=== PATIENT | male | born 1940 ===

== ENCOUNTER 2021-04-30 07:00 | Outpatient (CLI) | payer OTHER | END 2021-04-30 07:20 | disposition home or self-care (01) | LOC: PPH VACUNA 07:00 | PROVIDERS: ATTEND Emergency Medicine Pediatric Emergency Medicine | DX: Z23 Encounter for immunization (principal) ==

== ENCOUNTER 2021-11-01 13:41 | Emergency (ER) | payer OTHER ==
[~2021-11-01] VITALS: Ht 175.3 cm; Wt 83.9 kg
[2021-11-01] MEDS ORDERED: ATORVASTATIN CA40 MG PO (14:05)
[2021-11-01] MEDS ORDERED: LOSARTAN POTASS50 MG PO (14:05)
[2021-11-01] MEDS ORDERED: METFORMIN HCL500 M4 PO (14:05)
[2021-11-01] MEDS ORDERED: DULOXETINE HCL60 MG PO (14:06)
[2021-11-01] MEDS ORDERED: NIFEDIPINE ER30 M1 PO (14:06)
[2021-11-01] MEDS ORDERED: ISOSORBIDE MONO30 M2 PO (14:07)
[2021-11-01] MEDS ORDERED: SPIRONOLACTONE25 MG PO (14:07)
[2021-11-01] MEDS ORDERED: BUPROPION XL300 MG PO (14:08)
[2021-11-01] MEDS ORDERED: ST. JOSEPH ASPI81 M2 PO (14:08)
[2021-11-01] MEDS ORDERED: CARVEDILOL25 M1 PO (14:08)
[2021-11-01] MEDS ORDERED: OMEGA-3 ACID ETH1 GM PO (14:08)
[2021-11-01] MEDS ORDERED: FAMOTIDINE20 MG PO (14:08)
[2021-11-01] MEDS ORDERED: CLONAZEPAM2 MG PO (14:08)
[2021-11-01] MEDS ORDERED: RESTORIL30 MG PO (14:09)
[2021-11-01] MEDS ORDERED: CIPRO500 MG PO (18:49)
== END 2021-11-01 21:08 | disposition home or self-care (01) ==
LOC: ER 13:41
DX: S70.02XA Contusion of left hip, initial encounter (principal); S30.0XXA Contusion of lower back and pelvis, initial encounter; W19.XXXA Unspecified fall, initial encounter; Y93.9 Activity, unspecified; Y92.018 Other place in single-family (private) house as the place of occurrence of the external cause; Y99.9 Unspecified external cause status; N39.0 Urinary tract infection, site not specified; Z20.822 Contact with and (suspected) exposure to COVID-19; I10 Essential (primary) hypertension; E11.9 Type 2 diabetes mellitus without complications; Z79.84 Long term (current) use of oral hypoglycemic drugs